=== PATIENT | female | born 1980 | race Caucasian/White ===

== ENCOUNTER 2018-03-04 07:19 | Outpatient (CLI) | payer BC ==
--- NOTE | 2018-03-04 08:56 | ULT ---
ULTRASOUND ABDOMEN COMPLETE: HISTORY: 37-year-old female with right lower quadrant abdominal pain. FINDINGS: The gallbladder has normal wall thickness and has no evidence of gallstones or sludge. The hepatic e chogenicity is normal. The kidneys have normal echogenicity, and there is no hydronephrosis. There is no splenomegaly. There is no abdominal aortic aneurysm. No free fluid is identified. The inferi or vena cava is visualized. The pancreas is visualized, although ultrasound is relatively insensitiv e for pancreatic pathology compared to CT and MRI. There is no biliary dilation. Common duct caliber is 5.0 mm. The contents of the abdominal cavity in the right lower quadrant are obscured by shadowing from bowel gas. The appendix is not identified. IMPRESSION: 1. Normal abdominal ultrasound. 2. For evaluation of the right lower quadrant, CT of the abdomen and pelvis with IV and oral contras t is recommended. micheal [] POS: BO
== END 2018-03-04 07:20 | disposition home or self-care (01) ==
LOC: SCSULT 07:19
PROVIDERS: ATTEND Physician Assistant Medical
DX: R10.31 Right lower quadrant pain (principal)
CPT/HCPCS: 76700